=== PATIENT | male | born 1950 | race African-American/Black ===

== ENCOUNTER 2016-11-15 10:39 | Emergency (ER) | payer SELFPAY ==
[~2016-11-15] VITALS: Ht 170.2 cm; Wt 75.0 kg
[2016-11-15 10:41] VITALS: BP 150/84; PULSE 82; RESP 20; TEMP 97.9; O2SAT 98
[2016-11-15 10:52] VITALS: BP 158/68; PULSE 73; RESP 14; TEMP 97.8; O2SAT 98
--- NOTE | 2016-11-15 11:03 | PD ---
HPI Chief Complaint: GI Complaint Time Seen by Provider: 11:03 Travel History International Travel<30 days: No Contact w/Intl Traveler<30days: No Traveled to known affect area: No History of Present Illness HPI 66-year-old male came to the emergency room brought by his daughter with various unrelated complaints including insomnia, abdominal bloating and some discomfort and hemorrhoids. Upon asking patient says that these have been going on for many months. [place] as per the daughter he had colonoscopy and endoscopy done in June along with hemorrhoidectomy for the same symptoms. He was told that he had couple peptic ulcers but the colonoscopy otherwise was normal. Patient is taking MiraLAX as well as Prevacid. He does not have a primary care here and they're looking for insurance at this point. No history of vomiting or diarrhea. Vital signs are stable. [facility] Past Medical History Narrative Medical List of his past medical, surgical, social and family history is reviewed from the nursing note. Ulcer: Yes Past Surgical History Appendectomy: Yes Other Surgery: Yes (hernia repair) Social History Alcohol Use: No Tobacco Use: Yes (5-6 cigarettes/day) Substance Use: No Allergies-Medications (Allergen,Severity, Reaction): Coded Allergies: No Known Allergies (Unverified , 11/15/16) Comments No known drug allergies. Reported Meds & Prescriptions Reported Meds & Active Scripts Active Active Prescriptions or Reported Medications Unobtainable Narrative Medication List of his home medications reviewed from the nursing note. Review of Systems Except as stated in HPI: all other systems reviewed are Neg Physical Exam Narrative GENERAL: Awake, alert, no obvious distress SKIN: Focused skin assessment warm/dry. HEAD: Atraumatic. Normocephalic. EYES: Pupils equal and round. No scleral icterus. No injection or drainage. ENT: No nasal bleeding or discharge. Mucous membranes pink and moist. NECK: Trachea midline. No JVD. CARDIOVASCULAR: Regular rate and rhythm. No murmur appreciated. RESPIRATORY: No accessory muscle use. Clear to auscultation. Breath sounds equal bilaterally. GASTROINTESTINAL: Abdomen soft, non-tender, nondistended. Hepatic and splenic margins not palpable. Rectal exam shows small hemorrhoid with no thrombosed veins MUSCULOSKELETAL: No obvious deformities. No clubbing. No cyanosis. No edema. NEUROLOGICAL: Awake and alert. No obvious cranial nerve deficits. Motor grossly within normal limits. Normal speech. PSYCHIATRIC: Appropriate mood and affect; insight and judgment normal. Data Data Last Documented VS Vital Signs Date Time Temp Pulse Resp B/P (MAP) Pulse Ox O2 Delivery O2 Flow Rate FiO2 11/15/16 11:26 11/15/16 10:52 97.8 73 14 98 Room Air MDM Medical Decision Making Medical Screen Exam Complete: Yes Emergency Medical Condition: Yes Medical Record Reviewed: Yes Differential Diagnosis Insomnia, anxiety, chronic hemorrhoid Narrative Course 11:15 AM I recommended the daughter to not pursue any further tests since clinical exam is normal and patient has these complains that have been going on for many months. In fact he had endoscopy and colonoscopy done 6 months ago which were mostly normal except for the hemorrhoid and the peptic ulcer disease. He had a hemorrhoidectomy done at that time and he is on appropriate medications. I just recommended them to get a primary care as soon as possible. He is also been given a pamphlet for the [facility] in the meanwhile. They are happy with this plan. Procedures EKG Prior to Arrival: No Diagnosis Primary Impression: Insomnia Qualified Codes: F51.04 - Psychophysiologic insomnia Additional Impression: Normal physical exam Referrals: Primary Care Physician Additional Instructions: Please try to find a primary care and follow-up with them. Return to the ER if there is any acute issue. Continue taking high fiber diet and laxatives that you have the prescription at home already to make your stool as soft as possible. Camomile tea at night may help with sleep. Minimize your activity and exercise during the evening and try to wind down and relax in preparation for sleep at night. Try meditation in the evening. Med/Other Pt SpecificInfo: No Change to Meds Scripts Unable to Obtain Active Prescriptions or Reported Meds Disposition: 01 DISCHARGE HOME Condition: Stable Hali Dean MD Nov 15, 2016 11:03
== END 2016-11-15 11:39 | disposition home or self-care (01) ==
LOC: NEPD 10:39
DX: Z00.00 Encounter for general adult medical examination without abnormal findings (principal); F51.04 Psychophysiologic insomnia
CPT/HCPCS: 99281